=== PATIENT | male | born 1965 | race Caucasian/White ===

== ENCOUNTER 2020-05-19 07:37 | Inpatient (IN) ==
[2020-05-19] MEDS ORDERED: NS 0.9% 1000 ml BAG 1,000 ML IV ONE ×2 (07:45→08:49)
[2020-05-19] MEDS ORDERED: Ondansetron 4 mg VIAL 2 MG/ML 2 ml VIAL IV ONE (07:45)
[2020-05-19 08:06] LABS: ABS Lymphocytes 0.9 10^3/ul (1.0-4.8); ABS Monocytes 0.4 10^3/ul (0-0.8); ABS Neutrophils 12.7 10^3/ul (1.5-7.7); Hematocrit 35 % (42-52); Hemoglobin 11.8 g/dL (14.0-18.0); Lymphocyte % 6.4 %; Mean Corpuscular HGB Conc 34 g/dL (31-36); Mean Corpuscular Hemoglobin 31 pg (27-31); Mean Corpuscular Volume 91 fL (80-94); Mean Platelet Volume 7.9 fL (7.4-10.4); Platelet Count 363 10^3/uL (150-450); Red Blood Count 3.86 10^6 /uL (4.18-5.48); Red Cell Distribution Width 14 % (10-15); White Blood Count 14.1 10^3/uL (3.5-10.8)
[2020-05-19 08:21] LABS: ALT 23 U/L (7-52); AST 26 U/L (13-39); Albumin 4.9 g/dL (3.2-5.2); Albumin/Globulin Ratio 1.6 (1-3); Alkaline Phosphatase 83 U/L (34-104); Anion Gap 13 mmol/L (2-11); BUN/Creatinine Ratio 17.8 (8-20); Blood Urea Nitrogen 23 mg/dL (6-24); C Reactive Protein < 1.00 mg/L (<8.01); CO2 Carbon Dioxide 28 mmol/L (22-32); Chloride 95 mmol/L (101-111); EGFR African American 70.5 (>60); EGFR Non-African American 58.3 (>60); Globulin 3.1 g/dL (2-4); Glucose 173 mg/dL (70-100); Lipase 531 U/L (11.0-82.0); Potassium 3.9 mmol/L (3.5-5.0); Sodium 136 mmol/L (135-145)
[2020-05-19] MEDS ORDERED: Morphine 4 MG/ML VIAL (1 ml) IV ONE (08:48)
[2020-05-19] MEDS ORDERED: Famotidine IV 10 MG/ML 2 ml VIAL (20 mg) IV SLOW PU ONE (08:48)
[2020-05-19 10:25] LABS: Amylase 232 U/L (29-103)
[2020-05-19 11:53] LABS: Urine Appearance Clear; Urine Bilirubin Negative (Negative); Urine Blood Negative (Negative); Urine Color Yellow; Urine Glucose Negative (Negative); Urine Ketones Trace (Negative); Urine Nitrite Negative (Negative); Urine Protein 1+(30 mg/dL) (Negative); Urine Specific Gravity 1.016 (1.010-1.030); Urine Urobilinogen Negative (Negative)
[2020-05-19 12:09] LABS: Urine Bacteria Absent (Absent); Urine Red Blood Cell 1+(3-5/hpf) (Absent); Urine White Blood Cell Absent (Absent)
[2020-05-19] MEDS ORDERED: Morphine 2 MG/ML SYRINGE IV PRN (12:30)
[2020-05-19] MEDS: NS 0.9% 1000 ml BAG 1,000 ML IV SCH ×2 (13:24→21:30)
[2020-05-20] MEDS: NS 0.9% 1000 ml BAG 1,000 ML IV SCH (05:32)
[2020-05-20 06:21] LABS: ABS Lymphocytes 1.2 10^3/ul (1.0-4.8); ABS Monocytes 0.9 10^3/ul (0-0.8); ABS Neutrophils 5.7 10^3/ul (1.5-7.7); Eosinophil % 0.6 %; Hematocrit 27 % (42-52); Lymphocyte % 15.3 %; Mean Corpuscular HGB Conc 34 g/dL (31-36); Mean Corpuscular Hemoglobin 31 pg (27-31); Mean Corpuscular Volume 92 fL (80-94); Mean Platelet Volume 8.3 fL (7.4-10.4); Platelet Count 273 10^3/uL (150-450); Red Blood Count 2.94 10^6 /uL (4.18-5.48); Red Cell Distribution Width 14 % (10-15); White Blood Count 7.8 10^3/uL (3.5-10.8)
[2020-05-20 06:59] LABS: Anion Gap 6 mmol/L (2-11); BUN/Creatinine Ratio 19.3 (8-20); Blood Urea Nitrogen 21 mg/dL (6-24); CO2 Carbon Dioxide 24 mmol/L (22-32); Calcium 7.9 mg/dL (8.6-10.3); Chloride 109 mmol/L (101-111); EGFR African American 85.3 (>60); EGFR Non-African American 70.5 (>60); Glucose 96 mg/dL (70-100); Lipase 62 U/L (11.0-82.0); Sodium 139 mmol/L (135-145)
[2020-05-20 09:37] LABS: Amylase 101 U/L (29-103)
[2020-05-21 05:57] LABS: % Iron Saturation 50 % (15-55); Iron 126 ug/dL (50-212); Total Iron Binding Capacity 252 mcg/dL (250-450); Transferrin 180 mg/dL (203-362); Unsaturated Iron Binding < 237 ug/dL
[2020-05-21 06:09] LABS: Ferritin 61.4 ng/mL (24-336)
[2020-05-21 06:13] LABS: Folate 13.23 ng/mL (>3.99)
[2020-05-21 06:14] LABS: Vitamin B12 283 pg/mL (180-914)
[2020-05-21 06:18] LABS: ABS Basophils 0.1 10^3/ul (0-0.2); ABS Eosinophils 0.1 10^3/ul (0-0.6); ABS Lymphocytes 2.1 10^3/ul (1.0-4.8); ABS Monocytes 0.7 10^3/ul (0-0.8); ABS Neutrophils 4.1 10^3/ul (1.5-7.7); Eosinophil % 1.2 %; Hematocrit 29 % (42-52); Hemoglobin 9.8 g/dL (14.0-18.0); Lymphocyte % 30.6 %; Mean Corpuscular HGB Conc 33 g/dL (31-36); Mean Corpuscular Hemoglobin 31 pg (27-31); Mean Corpuscular Volume 91 fL (80-94); Mean Platelet Volume 8.4 fL (7.4-10.4); Platelet Count 300 10^3/uL (150-450); Red Blood Count 3.21 10^6 /uL (4.18-5.48); Red Cell Distribution Width 14 % (10-15)
[2020-05-21 06:48] LABS: BUN/Creatinine Ratio 13.5 (8-20); EGFR African American 83.5 (>60); Potassium 3.9 mmol/L (3.5-5.0)
[2020-05-21 12:08] VITALS: BP 128/69
== END 2020-05-21 12:45 | disposition home or self-care (01) | DRG 247 ==
LOC: ED 07:37 → SSU 11:57
PROVIDERS: ADMIT Hospitalist; ATTEND Hospitalist

== ENCOUNTER 2021-12-23 01:24 | Inpatient (IN) ==
[2021-12-23] MEDS ORDERED: Morphine 10 MG/ML VIAL (1 ml) IV ONE (03:03)
[2021-12-23] MEDS ORDERED: NS 0.9% 1000 ml BAG 2,000 ML IV ONE (03:03)
[2021-12-23] MEDS ORDERED: Droperidol 5 MG/2 ML 2 ML VIAL IV ONE (03:03)
[2021-12-23 03:37] LABS: ABS Basophils 0.1 10^3/ul (0-0.2); ABS Lymphocytes 0.9 10^3/ul (1.0-4.8); ABS Monocytes 0.6 10^3/ul (0-0.8); ABS Neutrophils 10.9 10^3/ul (1.5-7.7); Hematocrit 36 % (42-52); Hemoglobin 11.7 g/dL (14.0-18.0); Lymphocyte % 7.1 %; Mean Corpuscular HGB Conc 33 g/dL (31-36); Mean Corpuscular Hemoglobin 29 pg (27-31); Mean Corpuscular Volume 89 fL (80-94); Nucleated Red Blood Cells % 0.1; Platelet Count 350 10^3/uL (150-450); Red Blood Count 3.99 10^6 /uL (4.18-5.48); Red Cell Distribution Width 14 % (10-15); White Blood Count 12.4 10^3/uL (3.5-10.8)
[2021-12-23 04:07] LABS: Albumin 4.8 g/dL (3.2-5.2); Calcium 10.3 mg/dL (8.6-10.3); Potassium 3.7 mmol/L (3.5-5.0); Total Bilirubin 0.5 mg/dL (0.2-1.0)
[2021-12-23 04:13] LABS: Albumin/Globulin Ratio 1.8 (1-3); Globulin 2.7 g/dL (2-4); Total Protein 7.5 g/dL (6.4-8.9); eGFR CKD-EPI 56.4 (>60)
[2021-12-23] MEDS ORDERED: Morphine 2 MG/ML SYRINGE IV PRN (05:37)
[2021-12-23] MEDS: Heparin 5000 UNITS/ML 1 mL VIAL SUBCUT SCH ×2 (06:50→15:14)
[2021-12-23 07:57] LABS: C Reactive Protein 5.59 mg/L (<8.01)
[2021-12-23 08:31] LABS: Urine Appearance Clear; Urine Bilirubin Negative (Negative); Urine Blood Negative (Negative); Urine Color Yellow; Urine Glucose Negative (Negative); Urine Ketones 1+ (Negative); Urine Nitrite Negative (Negative); Urine Protein 1+(30 mg/dL) (Negative); Urine Specific Gravity 1.017 (1.002-1.030); Urine Urobilinogen Negative (Negative)
[2021-12-23] MEDS: Lactated Ringers 1000 ml BAG 1,000 ML IV SCH (08:50)
[2021-12-23 09:33] LABS: Urine Bacteria 1+ (Absent); Urine Red Blood Cell Trace(0-2/hpf) (Absent); Urine White Blood Cell Trace(0-5/hpf) (Absent)
[2021-12-24] MEDS: Heparin 5000 UNITS/ML 1 mL VIAL SUBCUT SCH ×3 (00:11→14:17)
[2021-12-24] MEDS: Lactated Ringers 1000 ml BAG 1,000 ML IV SCH (03:08)
[2021-12-24 06:51] LABS: ABS Eosinophils 0.1 10^3/ul (0-0.6); ABS Lymphocytes 1.4 10^3/ul (1.0-4.8); ABS Monocytes 0.6 10^3/ul (0-0.8); ABS Neutrophils 4.3 10^3/ul (1.5-7.7); Eosinophil % 1.1 %; Hematocrit 30 % (42-52); Hemoglobin 10.2 g/dL (14.0-18.0); Mean Corpuscular HGB Conc 34 g/dL (31-36); Mean Corpuscular Hemoglobin 31 pg (27-31); Mean Corpuscular Volume 91 fL (80-94); Mean Platelet Volume 7.9 fL (7.4-10.4); Platelet Count 299 10^3/uL (150-450); Red Blood Count 3.32 10^6 /uL (4.18-5.48); Red Cell Distribution Width 14 % (10-15); White Blood Count 6.5 10^3/uL (3.5-10.8)
[2021-12-24 07:29] LABS: Calcium 8.8 mg/dL (8.6-10.3); eGFR CKD-EPI 68.7 (>60)
[2021-12-24 11:51] VITALS: BP 142/72
== END 2021-12-24 15:30 | disposition home or self-care (01) | DRG 247 ==
LOC: ED 01:24 → EDHOLD 05:34 → SUATTDRO 05:34 → SSU 08:16
PROVIDERS: ADMIT Internal Medicine; ATTEND Hospitalist